=== PATIENT | male | born 1975 | race Caucasian/White ===

== ENCOUNTER 2018-03-20 15:24 | Observation (INO) ==
--- NOTE | 2018-03-20 15:45 | ED ---
HPI General Chief Complaint: Chest Pain Stated Complaint: CHEST DISCOMFORT X3DAYS/POSSIBLE HIGH BP Time Seen by Provider: 03/20/18 15:35 History of Present Illness HPI narrative: Patient is 42 years old male with history of high blood pressure , not on any medications. Presented today to emergency room complaining of midsternal chest pressure pain for 3 days, almost constant, denies shortness of breath. Pain is worsens with deep breath. He denies any traumatic event, does not feel stressed. Blood pressure is 175/118 in the emergency room. Aspirin, nitroglycerin given. Cardiac workup ordered. Reevaluation is pending. complaint: Reports chest pain Related Data Home Medications Medication Instructions Recorded Confirmed No Known Home Medications 03/20/18 03/20/18 Allergies Allergy/AdvReac Type Severity Reaction Status Date / Time No Known Allergies Allergy Verified 03/20/18 15:30 Review of Systems ROS: all other systems reviewed are negative Cardiovascular Reports chest pain PMFSH Medical History Medical History Hypertension (Acute) Pilonidal cyst (Acute) Surgical History Surgical History History of appendectomy (Acute) Social History Social History Substance History: No History of Abuse Second Hand Smoke Exposure: No Smoking Status: Never smoker How Often Do You Have a Drink Containing Alcohol: 2 to 4 times a month Recent Travel in [facility] within the Last 8 Weeks: No Recent Out of Country Travel within the Last 8 Weeks: No Exam Narrative Exam Narrative: GENERAL: 42 years old male in no apparent distress SKIN: Focused skin assessment warm/dry. HEAD: Atraumatic. Normocephalic. EYES: Pupils equal and round. No scleral icterus. No injection or drainage. ENT: No nasal bleeding or discharge. Mucous membranes pink and moist. NECK: Trachea midline. No JVD. CARDIOVASCULAR: Regular rate and rhythm. No murmur appreciated. RESPIRATORY: No accessory muscle use. Clear to auscultation. Breath sounds equal bilaterally. GASTROINTESTINAL: Abdomen soft, non-tender, nondistended. Hepatic and splenic margins not palpable. MUSCULOSKELETAL: No obvious deformities. No clubbing. No cyanosis. No edema. NEUROLOGICAL: Awake and alert. No obvious cranial nerve deficits. Motor grossly within normal limits. Normal speech. PSYCHIATRIC: Appropriate mood and affect; insight and judgment normal. Course Initial Documented Vital Signs Temperature 97.9 F 03/20/18 15:25 Pulse Rate 81 03/20/18 15:25 Respiratory Rate 16 03/20/18 15:25 Blood Pressure 157/78 H 03/20/18 15:25 Pulse Oximetry 99 03/20/18 15:25 Last Documented Vital Signs Temperature 97.9 F 03/20/18 15:25 Pulse Rate 84 03/20/18 15:53 Respiratory Rate 18 03/20/18 15:53 Blood Pressure 167/97 H 03/20/18 15:53 Pulse Oximetry 95 03/20/18 15:53 Medical Decision Making MDM Narrative Medical decision making narrative: 42 years old male presented for chest pain, cardiac workup,Aspirin, nitroglycerin given. Cardiac workup ordered. Reevaluation is pending. 1620: Labs noted, chest pain and blood pressure improved, first set of cardiac enzymes and d-dimer are negative, patient needs to be placed on observation for further evaluation and treatment. Case discussed with Dr. Orr, who accepted patient onto his service. Cardiac diet placed. Medical Screen Exam Complete: Yes Emergency Medical Condition: Yes Lab Data Result diagrams: 03/20/18 15:46 03/20/18 15:46 Lab Results 03/20/18 03/20/18 03/20/18 Range/Units 15:46 15:46 15:46 CBC w Diff Auto diff final WBC 7.3 (4.0-11.0) th/mm3 RBC 4.82 (4.50-5.90) mil/mm3 Hgb 14.5 (13.0-17.0) gm/dL Hct 44.1 (39.0-51.0) % MCV 91.5 (80.0-100.0) fL MCH 30.1 (27.0-34.0) pg MCHC 32.9 (32.0-36.0) % RDW 12.3 (11.6-17.2) % Plt Count 233 (150-450) th/mm3 MPV 9.2 (7.0-11.0) fL Neut % (Auto) 50.2 (16.0-70.0) % Lymph % (Auto) 36.1 (9.0-44.0) % [place] % (Auto) 10.7 H (0.0-8.0) % Eos % (Auto) 1.1 (0.0-4.0) % Baso % (Auto) 1.9 (0.0-2.0) % Neut # (Auto) 3.7 (1.8-7.7) th/mm3 Lymph # (Auto) 2.6 (1.0-4.8) th/mm3 [place] # (Auto) 0.8 (0.0-0.9) th/mm3 Eos # (Auto) 0.1 (0.0-0.4) th/mm3 Baso # (Auto) 0.1 (0.0-0.2) th/mm3 WBC Differential . Differential Comment . D-Dimer Quant (PE/DVT) Less than 0.19 (0.00-0.50) mg/L FEU Sodium 138 (136-145) meq/L Potassium 3.9 (3.5-5.1) meq/L Chloride 106 (98-107) meq/L Carbon Dioxide 23.8 (21.0-32.0) meq/L Anion Gap 8 (5-15) meq/L BUN 20 H (7-18) mg/dL Creatinine 0.98 (0.60-1.30) mg/dL Estimated GFR 85 L (>89) mL/min Random Glucose 88 (74-106) mg/dL Calcium 8.4 L (8.5-10.1) mg/dL Total Bilirubin 0.2 (0.2-1.0) mg/dL AST 11 L (15-37) U/L ALT 29 (12-78) U/L Alkaline Phosphatase 64 (45-117) U/L Total Creatine Kinase 58 (39-308) U/L Troponin I Less than 0.02 L (0.02-0.05) ng/mL B-Natriuretic Peptide (0-100) pg/mL Total Protein 7.6 (6.4-8.2) g/dL Albumin 3.5 (3.4-5.0) g/dL 03/20/18 Range/Units 15:46 CBC w Diff WBC (4.0-11.0) th/mm3 RBC (4.50-5.90) mil/mm3 Hgb (13.0-17.0) gm/dL Hct (39.0-51.0) % MCV (80.0-100.0) fL MCH (27.0-34.0) pg MCHC (32.0-36.0) % RDW (11.6-17.2) % Plt Count (150-450) th/mm3 MPV (7.0-11.0) fL Neut % (Auto) (16.0-70.0) % Lymph % (Auto) (9.0-44.0) % [place] % (Auto) (0.0-8.0) % Eos % (Auto) (0.0-4.0) % Baso % (Auto) (0.0-2.0) % Neut # (Auto) (1.8-7.7) th/mm3 Lymph # (Auto) (1.0-4.8) th/mm3 [place] # (Auto) (0.0-0.9) th/mm3 Eos # (Auto) (0.0-0.4) th/mm3 Baso # (Auto) (0.0-0.2) th/mm3 WBC Differential Differential Comment D-Dimer Quant (PE/DVT) (0.00-0.50) mg/L FEU Sodium (136-145) meq/L Potassium (3.5-5.1) meq/L Chloride (98-107) meq/L Carbon Dioxide (21.0-32.0) meq/L Anion Gap (5-15) meq/L BUN (7-18) mg/dL Creatinine (0.60-1.30) mg/dL Estimated GFR (>89) mL/min Random Glucose (74-106) mg/dL Calcium (8.5-10.1) mg/dL Total Bilirubin (0.2-1.0) mg/dL AST (15-37) U/L ALT (12-78) U/L Alkaline Phosphatase (45-117) U/L Total Creatine Kinase (39-308) U/L Troponin I (0.02-0.05) ng/mL B-Natriuretic Peptide 6 (0-100) pg/mL Total Protein (6.4-8.2) g/dL Albumin (3.4-5.0) g/dL ECG Data EKG Prior to Arrival: No Attestation: I personally reviewed and interpreted this ECG as follows: Prior ECG tracings: available for review Interpretation: Normal sinus rhythm at [address] elevation borderline left axis deviation Discharge Plan Discharge Disposition Patient Disposition: ED Admit(ED Internal Use Only) Discharge Condition Condition: Fair Discharge Order Discharge Orders: ED Use Only Admit Order (Routine); Ordered 03/20/18 Ordered By: Rober Alfaro Discharge Details Diagnosis: Atypical chest pain, Hypertension Physicians Team ED Provider: Rober Alfaro Primary Care Provider: Primary Care Minei,No Rxs /Orders / Referrals /Forms Prescriptions: No Action No Known Home Medications RF: 0 Discharge Instructions Patient Printed Instructions: Chest Pain (ED) Status ED Status: Admitted Observation Patient
[2018-03-20 15:57] LABS: Baso # (Auto) 0.1 th/mm3 (0.0-0.2); Baso % (Auto) 1.9 % (0.0-2.0); Eos # (Auto) 0.1 th/mm3 (0.0-0.4); Eos % (Auto) 1.1 % (0.0-4.0); Hematocrit 44.1 % (39.0-51.0); Hemoglobin 14.5 gm/dL (13.0-17.0); Lymph # (Auto) 2.6 th/mm3 (1.0-4.8); Lymph % (Auto) 36.1 % (9.0-44.0); Mean Corpuscular HGB Conc 32.9 % (32.0-36.0); Mean Corpuscular Hemoglobin 30.1 pg (27.0-34.0); Mean Corpuscular Volume 91.5 fL (80.0-100.0); Mean Platelet Volume 9.2 fL (7.0-11.0); Mono # (Auto) 0.8 th/mm3 (0.0-0.9); Mono % (Auto) 10.7 % (0.0-8.0); Neut # (Auto) 3.7 th/mm3 (1.8-7.7); Neut % (Auto) 50.2 % (16.0-70.0); Platelet Count 233 th/mm3 (150-450); Red Blood Count 4.82 mil/mm3 (4.50-5.90); Red Cell Distribution Width 12.3 % (11.6-17.2); White Blood Count 7.3 th/mm3 (4.0-11.0)
[2018-03-20 16:06] LABS: Chloride 106 meq/L (98-107); Potassium 3.9 meq/L (3.5-5.1); Sodium 138 meq/L (136-145)
[2018-03-20 16:11] LABS: Calcium 8.4 mg/dL (8.5-10.1)
[2018-03-20 16:12] LABS: Albumin 3.5 g/dL (3.4-5.0); Anion Gap 8 meq/L (5-15); Blood Urea Nitrogen 20 mg/dL (7-18); Carbon Dioxide 23.8 meq/L (21.0-32.0); Glucose,Random 88 mg/dL (74-106)
[2018-03-20 16:15] LABS: Alanine Aminotransferase 29 U/L (12-78); Aspartate Aminotransferase 11 U/L (15-37); Glomerular Filtration Rate 85 mL/min (>89)
[2018-03-20 16:16] LABS: Total Protein 7.6 g/dL (6.4-8.2)
[2018-03-20 16:17] LABS: Alkaline Phosphatase 64 U/L (45-117)
[2018-03-20 16:25] LABS: Creatine Kinase 58 U/L (39-308)
[2018-03-20] MEDS ORDERED: Morphine Inj 4 MG/ML Vial IV.PUSH ONE (16:34)
--- NOTE | 2018-03-20 17:04 | XR ---
EXAM DATE: 03/20/2018 5:01 PM EST AGE/SEX: 42 years / Male INDICATIONS: Mid chest pain CLINICAL DATA: This is the patient's initial encounter. Patient reports that signs and symptoms have been present for 2 days and indicates a pain score of 3/10. MEDICAL/SURGICAL HISTORY: None. None. COMPARISON: No prior exams available for comparison. FINDINGS: A single AP view of the chest demonstrates the lungs to be symmetrically aerated without evidence of mass, infiltrate or effusion. The cardiomediastinal contours are unremarkable. Osseous structures a re intact. CONCLUSION: No acute cardiopulmonary process Electronically signed by: Zaheer Eli MD Board Certified Radiologist 03/20/2018 5:02 PM EST
[2018-03-20] MEDS ORDERED: Acetaminophen 325 MG Tablet PO PRN (17:30)
[2018-03-20] MEDS ORDERED: Bisacodyl 10 MG Supp RECTAL PRN (17:30)
[2018-03-20] MEDS ORDERED: Morphine Sulfate Inj 2 MG/ML Vial IV.PUSH PRN (17:33)
[2018-03-20] MEDS ORDERED: Enoxaparin Inj 40 MG/0.4 ML Syringe SQ SCH (20:00)
[2018-03-20] MEDS: Senna/Docusate Sodium 8.6/50 MG Tablet PO SCH (21:38)
[2018-03-21 05:35] LABS: Baso % (Auto) 0.2 % (0.0-2.0); Eos # (Auto) 0.1 th/mm3 (0.0-0.4); Eos % (Auto) 0.7 % (0.0-4.0); Hematocrit 42.1 % (39.0-51.0); Hemoglobin 14.2 gm/dL (13.0-17.0); Lymph # (Auto) 1.9 th/mm3 (1.0-4.8); Lymph % (Auto) 23.1 % (9.0-44.0); Mean Corpuscular HGB Conc 33.7 % (32.0-36.0); Mean Corpuscular Hemoglobin 31.2 pg (27.0-34.0); Mean Corpuscular Volume 92.5 fL (80.0-100.0); Mean Platelet Volume 9.1 fL (7.0-11.0); Mono # (Auto) 0.7 th/mm3 (0.0-0.9); Neut # (Auto) 5.6 th/mm3 (1.8-7.7); Platelet Count 211 th/mm3 (150-450); Red Blood Count 4.56 mil/mm3 (4.50-5.90); Red Cell Distribution Width 12.5 % (11.6-17.2); White Blood Count 8.3 th/mm3 (4.0-11.0)
[2018-03-21 05:41] LABS: Chloride 105 meq/L (98-107); Potassium 4.1 meq/L (3.5-5.1); Sodium 139 meq/L (136-145)
[2018-03-21 05:45] LABS: Albumin 3.4 g/dL (3.4-5.0); Anion Gap 6 meq/L (5-15); Calcium 8.6 mg/dL (8.5-10.1); Carbon Dioxide 28.4 meq/L (21.0-32.0); Glucose,Random 92 mg/dL (74-106)
[2018-03-21 05:46] LABS: Blood Urea Nitrogen 17 mg/dL (7-18)
[2018-03-21 05:49] LABS: Alanine Aminotransferase 29 U/L (12-78); Aspartate Aminotransferase 12 U/L (15-37); Glomerular Filtration Rate 88 mL/min (>89)
[2018-03-21 05:50] LABS: Total Protein 7.3 g/dL (6.4-8.2)
[2018-03-21 05:51] LABS: Alkaline Phosphatase 61 U/L (45-117)
--- NOTE | 2018-03-21 07:57 | P.HP ---
History of Present Illness Primary Care Physician: No Primary Care Physician Chief Complaint: Chest pain History of Present Illness: This is a 42-year-old male patient with no known medical history who presented to the ED with complaints of chest pain. Patient states that over the past 3 days he has had intermittent chest tightness that would come and go especially with activity. He states that the chest pain is characteristically tight in nature, denies any radiation of pain, denies any associated nausea, vomiting, diaphoresis or shortness of breath. He denies ever having this type of pain before. Patient states that the pain has been worsening over the weekend rated a 8 out of 10 at its worst on pain scale. Does not take any medications at home. Denies any known trauma to his chest. Denies ever having a stress test in the past. Denies any recent fevers, chills, cough, abdominal pain, nausea, vomiting, diarrhea or dysuria. No significant family medical history of vascular disease. Denies any tobacco abuse. Does not follow with a primary care physician. - Diagnosis (1) Atypical chest pain (2) Hypertension Review of Systems All other systems reviewed negative except as stated in HPI PMFSH - History History Provided By: Patient - Medical History Medical History: Medical History (Last Reviewed 03/21/18 @ 10:57 by Noy Taylor) Hypertension Pilonidal cyst - Surgical History Surgical History: Surgical History (Last Reviewed 03/21/18 @ 10:57 by Noy Taylor) History of appendectomy - Family History Family History: Family History (Last Updated 03/21/18 @ 10:58 by Noy Taylor) Other Family history in first degree relatives is unremarkable - Social History I have reviewed the patient's Social History: Yes - Tobacco History Second Hand Smoke Exposure: No Smoking Status: Never smoker - Alcohol History How Often Do You Have a Drink Containing Alcohol: 2 to 4 times a month - Substance Use History Substance History: No History of Abuse - Travel History Recent Travel in the [place] Within the Last 8 Weeks: No Recent Travel Out of the Country Within the Last 8 Weeks: No - Immunization History Tetanus Immunization: Unsure Medications and Allergies Active Medications: Active Medications Acetaminophen (Tylenol) 650 mg PO Q4H PRN PRN Reason: Temp > 100.4 Last Admin: 03/20/18 21:42 Dose: 650 mg Al Hydroxide/Mg Hydroxide (Milk Of Magnesia Liq) 30 ml PO Q12H PRN PRN Reason: Mild Constipation Bisacodyl (Dulcolax Supp) 10 mg RECTAL DAILY PRN PRN Reason: SEVERE CONSITIPATION Enalaprilat (Vasotec Inj) 2.5 mg IV.PUSH Q6H PRN PRN Reason: SBP>160, DBP>90 Enoxaparin Sodium (Lovenox Inj) 40 mg SQ Q24H [facility] Last Admin: 03/20/18 21:37 Dose: 40 mg Lactulose (Lactulose Liq) 30 ml PO DAILY PRN PRN Reason: SEVERE CONSITIPATION Morphine Sulfate (Morphine Inj) 2 mg IV.PUSH Q4H PRN PRN Reason: CHEST PAIN Nitroglycerin (Nitro-Bid 2% Oint) 0.5 inch TOPICAL Q8HR [facility] Last Admin: 03/21/18 06:02 Dose: 0.5 inch Ondansetron HCl (Zofran Inj) 4 mg IV.PUSH Q6H PRN PRN Reason: NAUSEA OR VOMITING Senna/Docusate Sodium (Jessi-Colace) 1 tab PO BID [facility] Last Admin: 03/20/18 21:38 Dose: Not Given Sennosides (Senokot) 17.2 mg PO Q12H PRN PRN Reason: Moderate Constipation Sodium Chloride (Ns Flush) 2 ml IV.FLUSH UNSCH PRN PRN Reason: FLUSH AFTER USING IV ACCESS Last Admin: 03/20/18 16:54 Dose: 2 ml Sodium Chloride (Ns Flush) 2 ml IV.FLUSH BID [facility] Last Admin: 03/20/18 20:27 Dose: Not Given Sodium Chloride (Ns Flush) 2 ml IV.FLUSH PRN PRN PRN Reason: FLUSH AFTER USING IV ACCESS Allergies Allergy/AdvReac Type Severity Reaction Status Date / Time No Known Allergies Allergy Verified 03/20/18 15:30 Home Medications Medication Instructions Recorded Confirmed Type No Known Home Medications 03/20/18 03/20/18 History Exam Vital signs: Vital Signs 03/20/18 15:25 03/20/18 15:53 03/20/18 16:22 Temperature 97.9 F Pulse Rate 81 82 70 Respiratory Rate 16 18 18 Blood Pressure 157/78 H 167/97 H 138/75 Pulse Oximetry 99 95 95 03/20/18 16:52 03/20/18 17:50 03/20/18 20:00 Temperature 95.2 F L Pulse Rate 68 70 72 Respiratory Rate 20 18 18 Blood Pressure 149/86 H 152/84 H 143/93 H Pulse Oximetry 94 L 95 94 L 03/21/18 00:00 03/21/18 04:00 Temperature 95.9 F L 95.7 F L Pulse Rate 72 66 Respiratory Rate 18 18 Blood Pressure 113/65 123/78 Pulse Oximetry 96 95 Intake & Output 03/20/18 03/21/18 03/21/18 18:59 06:59 18:59 Intake Total 480 / 480 Output Total 1000 / 1000 Balance -520 / -520 Weight 122.2 kg 121.6 kg Intake: Oral 480 / 480 Output: Urine 1000 / 1000 Narrative: GENERAL: Well-developed, well-nourished patient in [facility]. SKIN: Warm and dry. No rash. HEAD: Normocephalic. Atraumatic. EYES: Pupils equal and round. No scleral icterus. No injection or drainage. ENT: No nasal bleeding or discharge. Mucous membranes pink and moist. NECK: Supple. Trachea midline. CARDIOVASCULAR: Regular rate and rhythm. S1, S2 noted. No murmur appreciated. Mild chest pain to palpation RESPIRATORY: No accessory muscle use. Clear to auscultation. Breath sounds equal bilaterally. GASTROINTESTINAL: Abdomen soft, non-tender, nondistended. Normoactive bowel sounds x4. MUSCULOSKELETAL: No obvious deformities. Extremities without clubbing, cyanosis , or edema. NEUROLOGICAL: Awake and alert. No obvious cranial nerve deficits. Motor grossly within normal limits. 5/5 muscle strength in bilateral upper and lower extremities. Normal speech. PSYCHIATRIC: Appropriate mood and affect; insight and judgment normal. Results - Labs CBC & Chem 7: 03/21/18 05:04 03/21/18 05:04 Labs: Laboratory Results - last 24 hr 03/20/18 03/20/18 03/20/18 15:46 15:46 15:46 CBC w Diff Auto diff final WBC 7.3 RBC 4.82 Hgb 14.5 Hct 44.1 MCV 91.5 MCH 30.1 MCHC 32.9 RDW 12.3 Plt Count 233 MPV 9.2 Neut % (Auto) 50.2 Lymph % (Auto) 36.1 [place] % (Auto) 10.7 H Eos % (Auto) 1.1 Baso % (Auto) 1.9 Neut # (Auto) 3.7 Lymph # (Auto) 2.6 [place] # (Auto) 0.8 Eos # (Auto) 0.1 Baso # (Auto) 0.1 WBC Differential . Differential Comment . D-Dimer Quant (PE/DVT) Less than 0.19 Sodium 138 Potassium 3.9 Chloride 106 Carbon Dioxide 23.8 Anion Gap 8 BUN 20 H Creatinine 0.98 Estimated GFR 85 L Random Glucose 88 Calcium 8.4 L Total Bilirubin 0.2 AST 11 L ALT 29 Alkaline Phosphatase 64 Total Creatine Kinase 58 Troponin I Less than 0.02 L B-Natriuretic Peptide Total Protein 7.6 Albumin 3.5 03/20/18 03/20/18 03/20/18 15:46 18:13 21:00 CBC w Diff WBC RBC Hgb Hct MCV MCH MCHC RDW Plt Count MPV Neut % (Auto) Lymph % (Auto) [place] % (Auto) Eos % (Auto) Baso % (Auto) Neut # (Auto) Lymph # (Auto) [place] # (Auto) Eos # (Auto) Baso # (Auto) WBC Differential Differential Comment D-Dimer Quant (PE/DVT) Sodium Potassium Chloride Carbon Dioxide Anion Gap BUN Creatinine Estimated GFR Random Glucose Calcium Total Bilirubin AST ALT Alkaline Phosphatase Total Creatine Kinase Troponin I Less than 0.02 L Less than 0.02 L B-Natriuretic Peptide 6 Total Protein Albumin 03/20/18 03/21/18 03/21/18 23:48 05:04 05:04 CBC w Diff Auto diff final WBC 8.3 RBC 4.56 Hgb 14.2 Hct 42.1 MCV 92.5 MCH 31.2 MCHC 33.7 RDW 12.5 Plt Count 211 MPV 9.1 Neut % (Auto) 67.0 Lymph % (Auto) 23.1 [place] % (Auto) 9.0 H Eos % (Auto) 0.7 Baso % (Auto) 0.2 Neut # (Auto) 5.6 Lymph # (Auto) 1.9 [place] # (Auto) 0.7 Eos # (Auto) 0.1 Baso # (Auto) 0.0 WBC Differential . Differential Comment . D-Dimer Quant (PE/DVT) Sodium 139 Potassium 4.1 Chloride 105 Carbon Dioxide 28.4 Anion Gap 6 BUN 17 Creatinine 0.95 Estimated GFR 88 L Random Glucose 92 Calcium 8.6 Total Bilirubin 0.5 AST 12 L ALT 29 Alkaline Phosphatase 61 Total Creatine Kinase Troponin I Less than 0.02 L B-Natriuretic Peptide Total Protein 7.3 Albumin 3.4 - Imaging Impressions Chest X-Ray 03/20/18 15:40 CONCLUSION: No acute cardiopulmonary process Caprini VTE Risk Assessment Caprini VTE Risk Assessment: No/Low Risk (score <= 1) Caprini Risk Assessment Model: Point Value = 1 Point Value = 2 Point Value = 3 Point Value = 5 Age 41-60 Minor surgery BMI > 25 kg/m2 Swollen legs Varicose veins or History of unexplained or recurrent spontaneous Oral contraceptives or hormone replacement Sepsis (< 1 month) Serious lung disease, including pneumonia (< 1 month) Abnormal pulmonary function Acute myocardial infarction Congestive heart failure (< 1 month) History of inflammatory bowel disease Medical patient at bed rest Age 61-74 Arthroscopic surgery Major open surgery (> 45 min) Laparoscopic surgery (> 45 min) Malignancy Confined to bed (> 72 hours) Immobilizing plaster cast Central venous access Age >= 75 History of VTE Family history of VTE Factor V Leiden Prothrombin [id number] Lupus anticoagulant Anticardiolipin antibodies Elevated serum homocysteine Heparin-induced thrombocytopenia Other congenital or acquired thrombophilia Stroke (< 1 month) Elective arthroplasty Hip, pelvis, or leg fracture Acute spinal cord injury (< 1 month) Prophylaxis Regimen: Total Risk Factor Score Risk Level Prophylaxis Regimen 0-1 Low Early ambulation 2 Moderate Order ONE of the following: *Sequential Compression Device (SCD) *Heparin 5000 units SQ BID 3-4 Higher Order ONE of the following medications: *Heparin 5000 units SQ TID *Enoxaparin/Lovenox 40 mg SQ daily (WT < 150 kg, CrCl > 30 mL/min) *Enoxaparin/Lovenox 30 mg SQ daily (WT < 150 kg, CrCl > 10-29 mL/min) *Enoxaparin/Lovenox 30 mg SQ BID (WT < 150 kg, CrCl > 30 mL/min) AND/OR *Sequential Compression Device (SCD) 5 or more Highest Order ONE of the following medications: *Heparin 5000 units SQ TID (Preferred with Epidurals) *Enoxaparin/Lovenox 40 mg SQ daily (WT < 150 kg, CrCl > 30 mL/min) *Enoxaparin/Lovenox 30 mg SQ daily (WT < 150 kg, CrCl > 10-29 mL/min) *Enoxaparin/Lovenox 30 mg SQ BID (WT < 150 kg, CrCl > 30 mL/min) AND *Sequential Compression Device (SCD) Assessment and Plan - Assessment (1) Atypical chest pain Code(s): R07.89 - Other chest pain Status: Acute (2) Hypertension Code(s): I10 - Essential (primary) hypertension Status: Acute - Plan This is a 42-year-old male patient presented the ED with: Chest pain -Patient has been admitted to chest pain center for observation. Serial EKGs and serial troponins were ordered for ruling out ACS purposes. Troponin trend flat. -EKG reviewed, no ST changes to indicate ischemia, controlled heart rate. Continue on cardiac telemetry overnight, no arrhythmias noted. -CBC and BMP reviewed, essentially unremarkable. -Chest x-ray reviewed no acute cardiopulmonary disease noted. -Patient does complain of some gastric reflux over the past couple weeks. Have been given a GI cocktail including Protonix, Carafate and [place]. Mild improvement with the pain. There is palpation of pain to mid epigastric area. -ACS has been ruled out with serial EKGs and serial troponins. Patient will undergo a cardiac stress test to further rule out any ischemia. -Patient stable this time and agreeable to plan. -Further hospitalization and treatment plan will depend on stress test results. Elevated blood pressure -Patient's blood pressure was elevated upon presentation with systolic in the 160s. -This has normalized and his blood pressures are 110s-120s. -Will continue to monitor. Have patient establish with PCP for follow-up. DVT prophylaxis: SCDs. Ambulation.
[2018-03-21] MEDS ORDERED: Sucralfate 1 GM Tablet PO ONE (08:56)
[2018-03-21] MEDS ORDERED: Aluminum/Magnesium/Simethacone Susp 30 ML UDC PO ONE (08:56)
[2018-03-21 09:38] VITALS: RESP 20
[2018-03-21] MEDS: Senna/Docusate Sodium 8.6/50 MG Tablet PO SCH (09:43)
[2018-03-21 12:11] VITALS: BP 121/81; PULSE 91; TEMP 96.1; O2SAT 92
--- NOTE | 2018-03-21 23:20 | ECG ---
Date Performed: 03/21/2018 Time Performed: 00:11:07 PTAGE: 42 years EKG: Sinus rhythm NORMAL ECG PREVIOUS TRACING : 03/20/2018 17.42 DOCTOR: Jovan Muñoz Interpretating Date/Time 03/21/2018 23:19:11
--- NOTE | 2018-03-21 23:29 | ECG ---
Date Performed: 03/20/2018 Time Performed: 17:42:56 PTAGE: 42 years EKG: Sinus rhythm WITH SINUS ARRHYTHMIA NORMAL ECG PREVIOUS TRACING : 03/20/2018 15.37 DOCTOR: Jovan Muñoz Interpretating Date/Time 03/21/2018 23:27:09
--- NOTE | 2018-03-21 23:30 | ECG ---
Date Performed: 03/20/2018 Time Performed: 15:37:10 PTAGE: 42 years EKG: Sinus rhythm WITH SINUS ARRHYTHMIA BORDERLINE LEFT AXIS DEVIATION MODERATE INTRAVENTRICULAR CONDUCTION DELAY BORD RICK ECG NO PREVIOUS TRACING DOCTOR: Jovan Muñoz Interpretating Date/Time 03/21/2018 23:28:21
--- NOTE | 2018-03-22 18:57 | TR ---
Date Performed: 03/21/2018 Time Performed: 10:23:55 DOCTOR: Silva Bonilla DRUG LIST: CLINICAL HISTORY: REASON FOR TEST: Angina REASON FOR ENDING: OBSERVATION: CONCLUSION: Christiano protocol completed test stopped secondary to reaching target heart rate. Good exercise tolerance. No reproducible chest discomfort. Good BP response. Recovery quick and unremarkab le. Maximum CL=178 Target HR [id number]=823.0% Maximum WR=851/98 Total Exercise Time=7:35 COMMENTS: No ischemia
== END 2018-03-21 12:20 | disposition home or self-care (01) ==
LOC: PHED 15:24 → PHEDA 15:24 → PH3 18:35
PROVIDERS: ADMIT Hospitalist; ATTEND Hospitalist
CPT/HCPCS: 71010; 71045; 80053; 82550; 83520; 83690; 83880; 84484; 85025; 85379; 93005; 93017; 96372; 96374; 99285; G0378; J1650; J2270